=== PATIENT | male | born 1995 | race Caucasian/White ===

== ENCOUNTER 2016-11-21 12:25 | Emergency (ER) | payer MEDICAID ==
[~2016-11-21] VITALS: Ht 177.8 cm; Wt 63.0 kg
[2016-11-21] MEDS ORDERED: LIDOCAINE HCL 1% 20ML VIAL (Pyxis) INJ INFIL ONE (16:00)
[2016-11-21] MEDS ORDERED: CEFTRIAXONE SODIUM 1 G/VIAL IM ONE (16:00)
[2016-11-21] MEDS ORDERED: IBUPROFEN 600MG TABLET PO ONE (16:00)
[2016-11-21 17:20] VITALS: BP 118/82
== END 2016-11-21 18:21 | disposition home or self-care (01) ==
LOC: ER 12:25
DX: L03.113 Cellulitis of right upper limb (principal); L02.413 Cutaneous abscess of right upper limb; J45.909 Unspecified asthma, uncomplicated; F17.210 Nicotine dependence, cigarettes, uncomplicated; F15.10 Other stimulant abuse, uncomplicated; Z90.49 Acquired absence of other specified parts of digestive tract; Z91.013 Allergy to seafood
CPT/HCPCS: 87070; 87077; 87205; 96372; 99284; J0696; J3490

== ENCOUNTER 2018-04-04 22:38 | Emergency (ER) | payer MEDICAID ==
[~2018-04-04] VITALS: Ht 177.8 cm; Wt 63.6 kg
[2018-04-05 00:13] VITALS: BP 102/53
[2018-04-05] MEDS ORDERED: PREDNISONE 20MG TABLET PO ONE (00:45)
== END 2018-04-05 00:57 | disposition home or self-care (01) ==
LOC: ER 22:38
DX: T78.1XXA Other adverse food reactions, not elsewhere classified, initial encounter (principal); J45.909 Unspecified asthma, uncomplicated; F17.200 Nicotine dependence, unspecified, uncomplicated; F12.10 Cannabis abuse, uncomplicated; Z90.89 Acquired absence of other organs; X58.XXXA Exposure to other specified factors, initial encounter
CPT/HCPCS: 99282; J7512

== ENCOUNTER 2018-11-27 15:08 | Emergency (ER) | payer MEDICAID ==
[~2018-11-27] VITALS: Ht 177.8 cm; Wt 61.0 kg
[2018-11-27 15:22] VITALS: BP 136/67
== END 2018-11-27 17:45 | disposition home or self-care (01) ==
LOC: ER 15:08
DX: L08.9 Local infection of the skin and subcutaneous tissue, unspecified (principal); R21 Rash and other nonspecific skin eruption; J45.909 Unspecified asthma, uncomplicated; F17.210 Nicotine dependence, cigarettes, uncomplicated; F12.10 Cannabis abuse, uncomplicated; F15.10 Other stimulant abuse, uncomplicated; Z59.0 Homelessness; Z86.19 Personal history of other infectious and parasitic diseases; Z90.49 Acquired absence of other specified parts of digestive tract; Z91.013 Allergy to seafood
CPT/HCPCS: 99283